=== PATIENT | male | born 1955 | race Hispanic/Latino ===

== ENCOUNTER 2018-02-02 21:23 | Emergency (ER) | payer SELFPAY ==
[~2018-02-02] VITALS: Ht 162.6 cm; Wt 69.9 kg
[2018-02-02] MEDS ORDERED: HALOPERIDOL LACTATE 5 MG/ML VIAL IM ONE (23:15)
[2018-02-03] MEDS ORDERED: HALOPERIDOL LACTATE 5 MG/ML VIAL IM ONE (00:15)
== END 2018-02-03 01:25 | disposition home or self-care (01) ==
LOC: FSED 21:23
DX: R07.89 Other chest pain (principal); R06.6 Hiccough; R94.5 Abnormal results of liver function studies
CPT/HCPCS: 71046; 80048; 80076; 81003; 82553; 84484; 85025; 93005; 99284; J1630